=== PATIENT | male | born 1975 | race Caucasian/White ===

== ENCOUNTER 2018-10-02 16:55 | Emergency (ER) | payer OTHER ==
[~2018-10-02] VITALS: Ht 175.3 cm; Wt 124.3 kg
[2018-10-02] MEDS ORDERED: LIPITOR 20 MG T20 M1 PO (17:08)
[2018-10-02] MEDS ORDERED: FOLIC ACID1 MG PO (17:08)
[2018-10-02] MEDS ORDERED: ZESTORETIC 20-1 EAC3 PO (17:09)
[2018-10-02] MEDS ORDERED: FORTAMET500 MG PO (17:09)
[2018-10-02] MEDS ORDERED: METOPROLOL SUC100 MG PO (17:10)
[2018-10-02 17:57] LABS: HEMATOCRIT 43.5 % (42.0-52.0); HEMOGLOBIN 14.8 gm/dL (14.0-18.0); MCH 30.3 pg (26.0-34.0); MCV 89.2 fL (80.0-100.0); RBC 4.88 mil/uL (4.50-6.00); RDW 13.1 % (10.5-14.5); WBC 11.6 thou/uL (4.0-11.0)
[2018-10-02 18:05] LABS: CALCIUM 10.6 mg/dL (8.5-10.1); CREATININE 0.8 mg/dL (0.7-1.3); POTASSIUM 3.8 mmol/L (3.5-5.1)
[2018-10-02 18:08] LABS: URIC ACID* 7.9 mg/dL (2.6-7.2)
[2018-10-02 18:14] LABS: APTT 24.4 Seconds (24.5-32.8)
[2018-10-02] MEDS ORDERED: COLCHICINE0.6 MG PO (19:44)
[2018-10-02] MEDS ORDERED: INDOMETHACIN 2525 MG PO (19:44)
[2018-10-02] MEDS ORDERED: TRAMADOL 50 MG50 MG PO (19:44)
[2018-10-02 20:03] VITALS: BP 122/65
== END 2018-10-02 20:04 | disposition home or self-care (01) ==
LOC: ER 16:55
PROVIDERS: Emergency Medicine
DX: M10.9 Gout, unspecified (principal); I10 Essential (primary) hypertension; E11.9 Type 2 diabetes mellitus without complications; E66.9 Obesity, unspecified; Z68.41 Body mass index [BMI] 40.0-44.9, adult